=== PATIENT | male | born 1985 | race Caucasian/White ===

== ENCOUNTER 2016-04-30 11:14 | Emergency (ER) | payer OTHER ==
[2016-04-30 11:22] VITALS: BP 113/69; PULSE 75; TEMP 98; BMI 22.5
[2016-04-30] MEDS ORDERED: CEPHALEXIN MONOHYDRATE 500 MG CAPSULE (UD) PO ONE (11:41)
[2016-04-30] MEDS ORDERED: CEPHALEXIN MONOHYDRATE 500 MG CAPSULE (UD) ONE (11:43)
--- NOTE | 2016-04-30 11:47 | PDOC ---
History of Present Illness - General Chief Complaint: Pain Stated Complaint: RT HAND PAIN Time Seen by Provider: 04/30/16 11:21 History Source: Patient, Adult Probation Officer Used (Rossy [id number]) Exam Limitations: Language Barrier - History of Present Illness Initial Comments: 04/30/16 11:45 31 yr male no medical history presents with injury to left index finger 3 months ago. Pt states he was hammering a nail and it slipped causing puncture wound to the index finger. Pt states on and off has had some pus from the wound. Pt has no pain, has FROM of the digit. tetanus is UTD. Pt has not had any medical care prior to today. 04/30/16 11:46 Past History - Past Medical History Allergies/Adverse Reactions: Allergies Allergy/AdvReac Type Severity Reaction Status Date / Time No Known Allergies Allergy Verified 04/30/16 11:22 Home Medications: Ambulatory Orders Cephalexin Monohydrate [Keflex -] 250 mg PO Q6H #28 capsule 04/30/16 Other medical history: denies - Psycho/Social/Smoking Cessation Hx Anxiety: No Suicidal Ideation: No Smoking History: Never smoked Information on smoking cessation initiated: No Hx Alcohol Use: No Drug/Substance Use Hx: No Substance Use Type: None *Physical Exam - Vital Signs Last Vital Signs Temp Pulse Resp BP Pulse Ox 98 F 75 18 113/69 99 04/30/16 11:20 04/30/16 11:20 04/30/16 11:20 04/30/16 11:20 04/30/16 11:20 - Physical Exam General Appearance: Yes: Nourished, Appropriately Dressed HEENT: positive: EOMI, MAMI Musculoskeletal: positive: Normal Inspection Extremity: positive: Normal Capillary Refill, Normal Range of Motion, Other ( left index finger lateral side with 1.0cm partialy healed red puncture wound between dip and pip no drainage, no redness , no streaking.) Integumentary: positive: Normal Color, Dry, Warm Neurologic: positive: Fully Oriented, Alert, Normal Mood/Affect, Normal Response , Motor Strength 5/5 Procedures - Additional Procedures Progress: 04/30/16 12:39 finger with no drainage or pus noted from the wound, nothing to be expressed wound cleaned and bacitracin and bandaid placed ED Treatment Course - RADIOLOGY Radiology Studies Ordered: Category Date Time Status FINGER(S) LEFT [RAD] Stat Radiology 04/30/16 11:41 Ordered Radiograph Interpretation: 04/30/16 12:26 neg fb - Medications Given in the ED: 04/30/16 12:26 keflex Medical Decision Making - Medical Decision Making 04/30/16 11:48 cc: left index finger puncture wound 3 months ago with on and off pus from the wound nv intact FROM no tendon involvement will xray to r/o fb no pus today, wound is dry 04/30/16 12:26 negative xray will soak in warm soapy water and apply bacitracin and bandaid, no drainage at present, no palpable fb *DC/Admit/Observation/Transfer Diagnosis at time of Disposition: Puncture wound - Discharge Dispostion Disposition: HOME Condition at time of disposition: Good - Prescriptions Prescriptions: Cephalexin Monohydrate [Keflex -] 250 mg PO Q6H #28 capsule - Referrals Referrals: Angel Bishop MD [Staff Physician] - - Patient Instructions Additional Instructions: follow with the hand surgeon for follow up take the antibiotics as directed soak in warm soapy water 4-5 times a day return to ER for any worsening symptoms Siga con el cirujano de mano para el seguimiento Isaiah los antibiticos segn las indicaciones Remojar en agua jabonosa caliente 4-5 veces al da Volver a ER para cualquier empeoramiento de los sntomas Print Language: [id number]
== END 2016-04-30 12:37 | disposition home or self-care (01) ==
LOC: JERFT 11:14
DX: S61.231A Puncture wound without foreign body of left index finger without damage to nail, initial encounter (principal); W45.0XXA Nail entering through skin, initial encounter; Y93.89 Activity, other specified; Y92.89 Other specified places as the place of occurrence of the external cause
CPT/HCPCS: 73140-TC-LT; 99281-25